=== PATIENT | female | born 1940 | race Caucasian/White ===

== ENCOUNTER 2017-05-10 08:04 | Day surgery (SDC) | payer MEDICARE, BC ==
[~2017-05-10 08:04] MED LIST: Lactated Ringers 1,000 ML IV SCH; Lidocaine 0.5% 50 ML SDV ONE; Midazolam 1 MG/ML 2 ML SDV ONE; Propofol 200 MG/20 ML SDV ONE; Sodium Chloride 0.9% 5 ML Syringe FLUSH PRN; ceFAZolin 1 GM Vial ONE; fentaNYL 100 MCG/2 ML SDV ONE
[2017-05-10] MEDS ORDERED: Bupivacaine 0.5% 30 ML SDV ONE (09:45)
[2017-05-10] MEDS ORDERED: Lactated Ringers 1,000 ML ONE (09:58)
[2017-05-10] MEDS ORDERED: Ondansetron 4 MG/2 ML SDV IV ONE (10:13)
[2017-05-10] MEDS ORDERED: fentaNYL 100 MCG/2 ML SDV IV ONE (10:13)
[2017-05-10] MEDS ORDERED: Propofol 200 MG/20 ML SDV IV ONE (10:13)
[2017-05-10] MEDS ORDERED: ceFAZolin 1 GM Vial IV ONE (10:13)
[2017-05-10] MEDS ORDERED: Midazolam 1 MG/ML 2 ML SDV IV ONE (10:13)
[2017-05-10] MEDS ORDERED: fentaNYL 100 MCG/2 ML SDV ONE (10:33)
[2017-05-10] MEDS ORDERED: Bupivacaine 0.5% 10 ML SDV INFILT ONE ×2 (10:46)
--- NOTE | 2017-05-10 12:03 | PCM.OPNOTE ---
- General Post-Op/Procedure Note Date of Surgery/Procedure: 05/10/17 Operative Procedure(s): Left cubital tunnel and carpal tunnel decompression. Findings: Atrophy of the ulnar nerve was noted. Also mild atrophy of the median nerve. Pre Op Diagnosis: Left cubital tunnel and carpal tunnel syndromes. Post-Op Diagnosis: Left cubital tunnel and carpal tunnel syndromes. Anesthesia Technique: General ET Tube, Moderate Sedation Primary Surgeon: John Carlin Complications: None Condition: Good Free Text/Narrative:: Preoperative diagnosis: Left cubital tunnel and carpal tunnel syndromes. Postoperative diagnosis: As above. Procedure performed: Left cubital tunnel and carpal tunnels release Informed consent was obtained from the patient regarding this procedure. All possible complications were thoroughly discussed. These include nerve injury vascular injury persistent numbness reoperation, failure of the operation to relieve the symptoms and other unknown complications. The patient previously had a similar procedure on the right side. As such is aware of the operative procedure. The patient was taken to the operating room and kept in the supine position. The dyer assistant administered a Luis Eduardo block anesthetic after exsanguination of the left upper extremity. However, there was marked cyanosis of the left upper extremity and the radial pulse could still be palpated. As such it was felt that we would not proceed with this type of anesthesia. A general anesthetic was then administered by the dyer assistant. The left upper extremity was thoroughly prepped and draped in the usual fashion. A tourniquet was placed and left upper arm to be used in case it was necessary. An incision was made in the left elbow 4 cm proximal and 47 m distal to the medial epicondyle. Dissection was performed in the serpiginous plane until the came down upon the area of the ulnar nerve. Carefully the removed the tissue off the cubital tunnel. The ulnar nerve was then carefully dissected proximally and distally. It was felt to be somewhat atrophic. Ever proximal pole adhesions as well as distal limitations. Proximally I dissected up to the intermuscular septum and distally up the common flexor origin. I then created a fascial sheath from the flexor origin. I placed the ulnar nerve anterior to the medial epicondyles and attached the small piece of common flexor sheath to the serpiginous tissue so as not to allow the ulnar nerve to drop down into the cubital tunnel. The arm was taken to flexion-extension several times. There was not felt to be any tension on the nerve. The wound was thoroughly irrigated. Small bleeders were cauterized. The subcutaneous tissues were approximated with 3-0 Polysorb. A 16 cm 1/4 inch drain was left in the wound and brought out to the distal edge of the skin incision which was closed using stainless steel clips. A sterile pressure dressings applied. Preoperative diagnosis: Left carpal tunnel syndrome. Postoperative diagnosis: As above. INFORMED CONSENT: Patient is here today for elective left carpal tunnel decompression. All aspects of this procedure have been discussed with the patient. All possible complications also, including possibility of perforation , infection, pain, bleeding and unknown complications. Anesthetic complications were handled by anesthesia department. The patient understands fully well. Patient did not have any further questions for me at the end of my interview. The patient wishes for me to proceed. PROCEDURE: A skin incision was made in the palm distal to the distal wrist crease for approximately 1 inch. The skin incision was deepened through the subcutaneous tissue, the palmar aponeurosis was incised and then we came down upon the transverse carpal ligament, which was opened along the line of the skin incision. Extreme care was taken to protect the median nerve below. Careful neurolysis was performed meticulously. Approximately 2 cc of Marcaine 0.5% was instilled into the wound and skin was closed using mattress sutures with 3.0 Nylon. The tourniquet was released. A sterile pressure dressing was applied. The patient tolerated the procedure well and was transferred to the recovery room in excellent condition. A posterior splint was placed to the left elbow. The patient was then transferred to the recovery room in an excellent condition. Blood loss was approximately 5-10 mL. Intraoperative complications were nil. Sponge needle and instrument count were correct.
[2017-05-10 14:05] VITALS: BP 159/78
== END 2017-05-10 14:10 | disposition home or self-care (01) ==
LOC: KA.SDS 08:04
PROVIDERS: ATTEND Family Medicine
DX: G56.02 Carpal tunnel syndrome, left upper limb (principal); G56.22 Lesion of ulnar nerve, left upper limb; I10 Essential (primary) hypertension; E87.6 Hypokalemia; E78.00 Pure hypercholesterolemia, unspecified; E03.9 Hypothyroidism, unspecified; Z88.1 Allergy status to other antibiotic agents; Z79.82 Long term (current) use of aspirin; Z79.899 Other long term (current) drug therapy
CPT/HCPCS: 01710; 01810; 64718; 64721; J0690; J2250; J2405; J2704; J3010; J7120

== ENCOUNTER 2018-11-14 11:52 | Inpatient (IN) | payer MEDICARE, BC ==
[2018-11-14] MEDS ORDERED: Enoxaparin 100 MG/1 ML Syringe SUBCUT SCH (14:00)
[2018-11-14] MEDS ORDERED: Atropine 0.1 MG/ML 10 ML Syringe IVPUSH PRN (14:45)
[2018-11-14] MEDS ORDERED: Lidocaine 2% 100 MG/5 ML Syringe IVPUSH PRN (14:45)
[2018-11-14] MEDS ORDERED: EPINEPHrine 1:10,000 1 MG/10 ML Syringe IVPUSH PRN (14:45)
[2018-11-14] MEDS ORDERED: Nitroglycerin 0.4 MG Tab.SL SL PRN (14:45)
--- NOTE | 2018-11-14 16:01 | CR ---
[id number] RAD/RAD Chest PA And Lateral EXAM: RAD Chest PA And Lateral INDICATION: A-FIB, NEW ONSET. COMPARISON: None. DISCUSSION: Cardiomediastinal silhouette is borderline enlarged. Atherosclerotic calcifications of the aortic knob. Right lower lobe pulmonary infiltrate. Left basilar subsegmental atelectasis. No pneumothorax or pleural effusion. IMPRESSION: Right lower lobe pulmonary infiltrate. Follow-up imaging after appropriate therapy in 4-6 weeks is recommended. Gustabo Ferreira DO 11/14/18 1600 Thank you for allowing us to participate in the care of your patient.
[2018-11-14] MEDS ORDERED: Acetaminophen 500 MG Tab PO PRN (16:47)
[2018-11-14] MEDS ORDERED: Warfarin 5 MG Tab PO SCH (17:00)
[2018-11-14] MEDS: Warfarin 5 MG Tab PO SCH (17:15)
[2018-11-14] MEDS ORDERED: Sodium Chloride 0.9% 10 ML Syringe FLUSH PRN (18:33)
[2018-11-14] MEDS ORDERED: atorvaSTATin 10 MG Tab PO SCH (21:00)
[2018-11-14] MEDS: Lisinopril 10 MG Tab PO SCH (21:16)
[2018-11-14] MEDS: Metoprolol Tartrate 50 MG Tab PO SCH (21:17)
[2018-11-15] MEDS: Levothyroxine 50 MCG Tab PO SCH (07:46)
[2018-11-15 07:54] LABS: ANION GAP 14.4 mmol/L (5-15)
[2018-11-15] MEDS: Potassium Chloride 20 MEQ Tab.ER PO SCH (08:39)
[2018-11-15] MEDS: atorvaSTATin 10 MG Tab PO SCH (08:40)
[2018-11-15] MEDS: Lisinopril 20 MG Tab PO SCH (08:40)
[2018-11-15] MEDS: Metoprolol Tartrate 50 MG Tab PO SCH ×2 (08:41→21:36)
[2018-11-15] MEDS: Furosemide 40 MG Tab PO SCH (08:41)
--- NOTE | 2018-11-15 14:27 | PCM.PN ---
- General Info Date of Service: 11/15/18 Functional Status: Reports: Pain Controlled, Tolerating Diet, New Symptoms ( Nurses reporting intermittent tachycardia however less than 110). Denies: Ambulating - Review of Systems General: Reports: No Symptoms HEENT: Reports: No Symptoms Pulmonary: Reports: No Symptoms Cardiovascular: Reports: Palpitations Gastrointestinal: Reports: No Symptoms Genitourinary: Reports: No Symptoms Musculoskeletal: Reports: No Symptoms Skin: Reports: No Symptoms Neurological: Reports: No Symptoms Psychiatric: Reports: No Symptoms - Patient Data Vitals - Most Recent: Last Vital Signs Temp 97.0 F 11/15/18 11:00 Pulse 70 11/15/18 11:00 Resp 20 11/15/18 11:00 BP 131/82 11/15/18 11:00 Pulse Ox 92 L 11/15/18 11:00 Weight - Most Recent: 192 lb 9.6 oz I&O - Last 24 Hours: Intake & Output 11/14/18 11/15/18 11/15/18 22:59 06:59 14:59 Intake Total 160 150 Balance 160 150 Lab Results Last 24 Hours: Laboratory Results - last 24 hr 11/14/18 11/14/18 11/15/18 Range/Units 15:00 15:00 07:15 PT 10.3 (8.9-11.4) SEC INR 1.0 (0.9-1.1) Sodium 143 (136-145) mmol/L Potassium 4.1 (3.3-5.3) mmol/L Chloride 108 (98-115) mmol/L Carbon Dioxide 24.7 (21.0-32.0) mmol/L Anion Gap 14.4 (5-15) mmol/L BUN 19 (6-25) mg/dL Creatinine 0.95 (0.51-1.17) mg/dL Est Cr Clr Drug Dosing 37.98 mL/min Estimated GFR (MDRD) 57 mL/min Glucose 93 (75 - 99) mg/dL Calcium 8.8 (8.7-10.3) mg/dL Troponin I 0.07 (0.00-0.070) ng/mL 11/15/18 Range/Units 07:15 PT 10.7 (8.9-11.4) SEC INR 1.1 (0.9-1.1) Sodium (136-145) mmol/L Potassium (3.3-5.3) mmol/L Chloride (98-115) mmol/L Carbon Dioxide (21.0-32.0) mmol/L Anion Gap (5-15) mmol/L BUN (6-25) mg/dL Creatinine (0.51-1.17) mg/dL Est Cr Clr Drug Dosing mL/min Estimated GFR (MDRD) mL/min Glucose (75 - 99) mg/dL Calcium (8.7-10.3) mg/dL Troponin I (0.00-0.070) ng/mL Med Orders - Current: Current Medications Acetaminophen (Tylenol Extra Strength) 500 - 1,000 mg PO Q4H PRN PRN Reason: Pain Atorvastatin Calcium (Lipitor) 10 mg PO DAILY [facility] Last Admin: 11/15/18 08:40 Dose: 10 mg Atropine Sulfate (Atropine 0.1 Mg/Ml) 0 mg IVPUSH ASDIRECTED PRN PRN Reason: Heart Epinephrine HCl (Epinephrine 1:10,000) 1 mg IVPUSH ASDIRECTED PRN PRN Reason: Heart Furosemide (Lasix) 20 mg PO DAILY [facility] Last Admin: 11/15/18 08:41 Dose: 20 mg Levothyroxine Sodium (Synthroid) 50 mcg PO ACBREAKFAST [facility] Last Admin: 11/15/18 07:46 Dose: 50 mcg Lidocaine HCl (Xylocaine 2%) 0 mg IVPUSH ASDIRECTED PRN PRN Reason: Heart Lisinopril (Prinivil) 10 mg PO QPM [facility] Last Admin: 11/14/18 21:16 Dose: 10 mg Lisinopril (Prinivil) 20 mg PO QAM [facility] Last Admin: 11/15/18 08:40 Dose: 20 mg Metoprolol Tartrate (Lopressor) 100 mg PO DAILY [facility] Last Admin: 11/15/18 08:41 Dose: 100 mg Metoprolol Tartrate (Lopressor) 50 mg PO QPM [facility] Last Admin: 11/14/18 21:17 Dose: 50 mg Nitroglycerin (Nitrostat) 0.4 mg SL ASDIRECTED PRN PRN Reason: Heart Potassium Chloride (Klor-Con M20) 20 meq PO DAILY [facility] Last Admin: 11/15/18 08:39 Dose: 20 meq Sodium Chloride (Saline Flush) 10 ml FLUSH Q8HR PRN PRN Reason: keep vein open Warfarin Sodium (Coumadin) 5 mg PO DAILY@1800 [facility] Last Admin: 11/14/18 17:15 Dose: 5 mg Warfarin Sodium (Pharmacy To Dose - Warfarin) 1 dose PO ASDIRECTED [facility] Discontinued Medications Atorvastatin Calcium (Lipitor) 10 mg PO BEDTIME [facility] Last Admin: 11/14/18 21:20 Dose: Not Given Enoxaparin Sodium (Lovenox) 90 mg SUBCUT Q12H [facility] Last Admin: 11/14/18 17:06 Dose: Not Given Warfarin Sodium (Coumadin) 5 mg PO DAILY [facility] Last Admin: 11/14/18 18:36 Dose: Not Given - Exam Quality Assessment: No: Supplemental Oxygen General: Alert, Oriented Neck: Supple Lungs: Clear to Auscultation, Normal Respiratory Effort Cardiovascular: Irregular Rhythm. No: Tachycardia GI/Abdominal Exam: Soft (Female) Exam: Deferred Back Exam: No: CVA Tenderness (L) Extremities: No: Pedal Edema Psy/Mental Status: Alert, Normal Affect, Normal Mood - Problem List Review Problem List Initiated/Reviewed/Updated: Yes - My Orders Last 24 Hours: My Active Orders 11/14/18 14:45 Atropine [Atropine 0.1 MG/ML] 0 mg IVPUSH ASDIRECTED PRN EPINEPHrine [EPINEPHrine 1:10,000] 1 mg IVPUSH ASDIRECTED PRN Lidocaine 2% [Xylocaine 2%] 0 mg IVPUSH ASDIRECTED PRN Nitroglycerin [Nitrostat] 0.4 mg SL ASDIRECTED PRN 11/14/18 15:00 Warfarin Pharmacy to Dose [Pharmacy to Dose - Warfarin] 1 dose PO ASDIRECTED 11/14/18 16:00 Peripheral IV Insertion Adult [OM.PC] Routine 11/14/18 16:47 Acetaminophen [Tylenol Extra Strength] 500 - 1,000 mg PO Q4H PRN 11/14/18 18:00 Warfarin [Coumadin] 5 mg PO DAILY@1800 11/14/18 18:33 Peripheral IV Care [RC] . DIRECTED Sodium Chloride 0.9% [Saline Flush] 10 ml FLUSH Q8HR PRN 11/14/18 21:00 Lisinopril [Prinivil] 10 mg PO QPM Metoprolol Tartrate [Lopressor] 50 mg PO QPM 11/15/18 07:30 Levothyroxine [Synthroid] 50 mcg PO ACBREAKFAST 11/15/18 09:00 Furosemide [Lasix] 20 mg PO DAILY Lisinopril [Prinivil] 20 mg PO QAM Metoprolol Tartrate [Lopressor] 100 mg PO DAILY Potassium Chloride [Klor-Con M20] 20 meq PO DAILY atorvaSTATin [Lipitor] 10 mg PO DAILY 11/15/18 Lunch Heart Healthy Diet [DIET] 11/16/18 12:36 INR,PT,PROTHROMBIN TIME [COAG] DAILY 11/17/18 12:36 INR,PT,PROTHROMBIN TIME [COAG] DAILY 11/18/18 12:36 INR,PT,PROTHROMBIN TIME [COAG] DAILY 11/19/18 12:36 INR,PT,PROTHROMBIN TIME [COAG] DAILY 11/20/18 12:36 INR,PT,PROTHROMBIN TIME [COAG] DAILY 11/21/18 12:36 INR,PT,PROTHROMBIN TIME [COAG] DAILY 11/22/18 12:36 INR,PT,PROTHROMBIN TIME [COAG] DAILY - Plan Plan:: 78 year old female came into the [facility] to see me mainly for her chronic medical conditions and medication review and refill however she had irregular heart rate with new detected onset of atrial fibrillation. She states she has noticed palpitations for the past month or 2 and she has taken her pulse and she admits to irregular heart rate however she has never communicated this to anybody. Primary hospital problems Atrial fibrillation, CVR, [id number] Score 5, 5 mg Coumadin, DOAC cost prohibitive for her, INR goal 2-3, current rate control with hypertension medication metoprolol. HFpEF, diastolic, Echo in November 2017 EF 65%. Grade 1 left ventricular diastolic dysfunction. Normal systolic function. Lasix 20mg daily and potassium 20mEq daily. Likely NYHA class II based off sx. On ACEI inhibition. Could target to 30mg dialy. Chronic problems Hypertension taking metoprolol and lisinopril. Does not check BP at home. Stable, Hypothyroidism, Last TSH 11/07/18 3.14 levothyroxine 50mcg daily. HLD, hyperlipidemia, taking atorvastatin 10mg daily; feels diet is balanced. H/O ovarian cancer. Last CA 125 level was May, 2018; Osteopenia: Last DEXA Jun 2015--osteopenia; on alendronate Overall plan, continue inpatient stay with ongoing educational videos regarding atrial fibrillation. Coumadin 5 mg by mouth daily, likely will be discharged in the morning. Coumadin clinic referral was placed in outpatient clinic
[2018-11-15] MEDS: Warfarin 5 MG Tab PO SCH (18:03)
[2018-11-15] MEDS: Lisinopril 10 MG Tab PO SCH (21:35)
[2018-11-16] MEDS: Levothyroxine 50 MCG Tab PO SCH (06:52)
[2018-11-16] MEDS: atorvaSTATin 10 MG Tab PO SCH (09:58)
[2018-11-16] MEDS: Potassium Chloride 20 MEQ Tab.ER PO SCH (09:59)
[2018-11-16] MEDS: Metoprolol Tartrate 50 MG Tab PO SCH (09:59)
[2018-11-16] MEDS: Lisinopril 20 MG Tab PO SCH (09:59)
[2018-11-16] MEDS: Furosemide 40 MG Tab PO SCH (10:00)
[2018-11-16 11:52] VITALS: BP 131/97
--- NOTE | 2018-11-16 13:41 | PCM.DCSUM1 ---
Discharge Summary - Hospital Course Diagnosis: Stroke: No - Discharge Data Discharge Date: 11/16/18 Discharge Disposition: Home, Self-Care 01 Condition: Good - Patient Instructions Diet: Heart Healthy Diet Activity: As Tolerated Showering/Bathing: May Shower Other/Special Instructions: --Report any on bruising, bloody urine or any signs of bleeding or dark stools. --Come to [facility] Monday and Monday to check your blood level. --You will be called by a pharmacist to inform you how much Coumadin to take. --Keep taking 5 mg of Coumadin each day this weekend until further instructions. - Discharge Plan *PRESCRIPTION DRUG MONITORING PROGRAM REVIEWED*: Not Applicable *COPY OF PRESCRIPTION DRUG MONITORING REPORT IN PATIENT STAN: Not Applicable Prescriptions/Med Rec: atorvaSTATin [Lipitor] 10 mg PO DAILY #90 tablet Furosemide [Lasix] 20 mg PO DAILY #90 tablet Levothyroxine Sodium [Levo-T] 50 mcg PO DAILY #90 tablet Potassium Chloride [Klor-Con M20] 20 meq PO DAILY #90 tab.er Warfarin [Coumadin] 2 mg PO DAILY #60 tab Home Medications: Home Meds Acetaminophen [Acetaminophen Extra Strength] 500 - 1,000 mg PO Q4H PRN 03/29/16 [History] Alendronate [Fosamax] 70 mg PO Q7D@0600 03/29/16 [History] Furosemide [Lasix] 20 mg PO DAILY 03/29/16 [History] Levothyroxine [Synthroid] 50 mcg PO ACBREAKFAST 03/29/16 [History] Lisinopril 20 mg PO QAM 03/29/16 [History] Metoprolol Tartrate [Lopressor] 100 mg PO DAILY 03/29/16 [History] Potassium Chloride [Klor-Con M20] 20 meq PO DAILY 03/29/16 [History] atorvaSTATin [Lipitor] 10 mg PO BEDTIME 03/29/16 [History] Lisinopril 10 mg PO QPM 11/14/18 [History] Metoprolol Tartrate 50 mg PO QPM 11/14/18 [History] Warfarin [Coumadin] 5 mg PO DAILY 11/14/18 [History] Furosemide [Lasix] 20 mg PO DAILY #90 tablet 11/16/18 [Rx] Levothyroxine Sodium [Levo-T] 50 mcg PO DAILY #90 tablet 11/16/18 [Rx] Potassium Chloride [Klor-Con M20] 20 meq PO DAILY #90 tab.er 11/16/18 [Rx] Warfarin [Coumadin] 2 mg PO DAILY #60 tab 11/16/18 [Rx] atorvaSTATin [Lipitor] 10 mg PO DAILY #90 tablet 11/16/18 [Rx] Referrals: Dane Wilson, [employer] APPRENTICE [Nurse Practitioner] - (Early next week) - Discharge Summary/Plan Comment DC Time >30 min.: Yes Discharge Summary/Plan Comment: Final diagnosis Atrial fibrillation, new onset CVR HFpEF, chronic diastolic Chronic problems Hypertension taking metoprolol and lisinopril. Does not check BP at home. Stable, Hypothyroidism, Last TSH 11/07/18 3.14 levothyroxine 50mcg daily. HLD, hyperlipidemia, taking atorvastatin 10mg daily; feels diet is balanced. H/O ovarian cancer. Last CA 125 level was May, 2018; Osteopenia: Last DEXA Jun 2015--osteopenia; on alendronate History summary I had seen patient at [facility] for routine medical appointment however noticed her heart rate was quite irregular EKG demonstrated atrial fibrillation. She was admitted mainly on telemetry for medication management, anticoagulation education. She patient states that over the past 2 months she has noticed irregular pulse however denies chest pain diaphoresis or dizziness. She does have heart failure likely class II. For her hypertension she's been on metoprolol and lisinopril. , Echo in November 2017 EF 65%. Grade 1 left ventricular diastolic dysfunction. Normal systolic function. Lasix 20mg daily and potassium 20mEq daily. Likely NYHA class II based off sx. On ACEI inhibition. Hospital course Hospital course went well no side effects or adverse reactions to medications and/or treatments. She remained on telemetry with a resting heart rate 70s 80s however twice she had tachycardia up to 115 on ambulation. No palpitations blood pressure remained good. No hemodynamic instability. She was given Coumadin 5 mg tablet daily. Her INR on discharge was subtherapeutic at 1.3 however increasing. She received both verbal and written and review education regarding atrial fibrillation. Medication changes/adjustments upon discharge Discontinue ibuprofen and aspirin Coumadin 5 mg by mouth daily Disposition Discharge from the hospital, I will follow her up next week, and INR checks [facility] Monday and Monday. She will take 5 mg daily on Monday and Monday and INR clinic will contact her. Referral placed, and phone call placed by nurses at [facility] - General Info Functional Status: Reports: Pain Controlled - Review of Systems General: Reports: No Symptoms HEENT: Reports: No Symptoms Pulmonary: Reports: No Symptoms Cardiovascular: Reports: No Symptoms. Denies: Palpitations, Lightheadedness Gastrointestinal: Reports: No Symptoms Genitourinary: Reports: No Symptoms Musculoskeletal: Reports: No Symptoms Neurological: Reports: No Symptoms Psychiatric: Reports: No Symptoms - Patient Data Vitals - Most Recent: Last Vital Signs Temp 97.5 F 11/16/18 11:00 Pulse 66 11/16/18 11:00 Resp 20 11/16/18 11:00 BP 131/97 H 11/16/18 11:00 Pulse Ox 93 L 11/16/18 11:00 Weight - Most Recent: 192 lb 9.6 oz I&O - Last 24 hours: Intake & Output 11/15/18 11/16/18 11/16/18 22:59 06:59 14:59 Intake Total 740 200 Output Total 200 Balance 540 200 Lab Results - Last 24 hrs: Laboratory Results - last 24 hr 11/16/18 Range/Units 08:20 PT TNP INR 1.3 H (0.9-1.1) Med Orders - Current: Current Medications Acetaminophen (Tylenol Extra Strength) 500 - 1,000 mg PO Q4H PRN PRN Reason: Pain Last Admin: 11/16/18 06:52 Dose: 500 mg Atorvastatin Calcium (Lipitor) 10 mg PO DAILY [facility] Last Admin: 11/16/18 09:58 Dose: 10 mg Atropine Sulfate (Atropine 0.1 Mg/Ml) 0 mg IVPUSH ASDIRECTED PRN PRN Reason: Heart Epinephrine HCl (Epinephrine 1:10,000) 1 mg IVPUSH ASDIRECTED PRN PRN Reason: Heart Furosemide (Lasix) 20 mg PO DAILY [facility] Last Admin: 11/16/18 10:00 Dose: 20 mg Levothyroxine Sodium (Synthroid) 50 mcg PO ACBREAKFAST [facility] Last Admin: 11/16/18 06:52 Dose: 50 mcg Lidocaine HCl (Xylocaine 2%) 0 mg IVPUSH ASDIRECTED PRN PRN Reason: Heart Lisinopril (Prinivil) 10 mg PO QPM [facility] Last Admin: 11/15/18 21:35 Dose: 10 mg Lisinopril (Prinivil) 20 mg PO QAM [facility] Last Admin: 11/16/18 09:59 Dose: 20 mg Metoprolol Tartrate (Lopressor) 100 mg PO DAILY [facility] Last Admin: 11/16/18 09:59 Dose: 100 mg Metoprolol Tartrate (Lopressor) 50 mg PO QPM [facility] Last Admin: 11/15/18 21:36 Dose: 50 mg Nitroglycerin (Nitrostat) 0.4 mg SL ASDIRECTED PRN PRN Reason: Heart Potassium Chloride (Klor-Con M20) 20 meq PO DAILY [facility] Last Admin: 11/16/18 09:59 Dose: 20 meq Sodium Chloride (Saline Flush) 10 ml FLUSH Q8HR PRN PRN Reason: keep vein open Warfarin Sodium (Coumadin) 5 mg PO DAILY@1800 [facility] Last Admin: 11/15/18 18:03 Dose: 5 mg Warfarin Sodium (Pharmacy To Dose - Warfarin) 1 dose PO ASDIRECTED [facility] Discontinued Medications Atorvastatin Calcium (Lipitor) 10 mg PO BEDTIME [facility] Last Admin: 11/14/18 21:20 Dose: Not Given Enoxaparin Sodium (Lovenox) 90 mg SUBCUT Q12H [facility] Last Admin: 11/14/18 17:06 Dose: Not Given Warfarin Sodium (Coumadin) 5 mg PO DAILY [facility] Last Admin: 11/14/18 18:36 Dose: Not Given - Exam Quality Assessment: Denies: Supplemental Oxygen General: Reports: Alert, Oriented Neck: Reports: Supple Lungs: Reports: Clear to Auscultation, Normal Respiratory Effort Cardiovascular: Reports: Irregular Rhythm (Female) Exam: Deferred Extremities: Pedal Edema Psy/Mental Status: Reports: Alert, Normal Affect, Normal Mood
== END 2018-11-16 14:10 | disposition home or self-care (01) | DRG 308 ==
LOC: KA.MS 14:44
PROVIDERS: ADMIT Nurse Practitioner Family; ATTEND Family Medicine
DX: I48.91 Unspecified atrial fibrillation (principal); I50.33 Acute on chronic diastolic (congestive) heart failure; I11.0 Hypertensive heart disease with heart failure; E03.9 Hypothyroidism, unspecified; E78.5 Hyperlipidemia, unspecified; M10.9 Gout, unspecified; M85.80 Other specified disorders of bone density and structure, unspecified site; Z79.899 Other long term (current) drug therapy; Z88.1 Allergy status to other antibiotic agents; Z85.43 Personal history of malignant neoplasm of ovary; Z79.01 Long term (current) use of anticoagulants
CPT/HCPCS: 36415; 36416; 71046; 80048; 84484; 85610; 93005; A9270-GY

== ENCOUNTER 2019-12-22 01:43 | Emergency (ER) | payer MEDICARE, BC ==
--- NOTE | 2019-12-22 02:28 | EDM.PDOC ---
ED HPI GENERAL MEDICAL PROBLEM - General Chief Complaint: General Stated Complaint: Nose Bleed Time Seen by Provider: 12/22/19 02:02 Source of Information: Reports: Patient History Limitations: Reports: No Limitations - History of Present Illness INITIAL COMMENTS - FREE TEXT/NARRATIVE: Patient presents with nosebleed that started a little over an hour ago. She is on warfarin (for A FIb) and last INR was 2.7 two weeks ago. She didn't take the warfarin today. She has been applying direct pressure but the bleeding won' t stop. She says she hasn't ever had this bad a nosebleed before. - Related Data Allergies Allergy/AdvReac Type Severity Reaction Status Date / Time ampicillin Allergy Hives Verified 11/14/18 12:40 Home Meds: Home Meds Acetaminophen [Acetaminophen Extra Strength] 500 - 1,000 mg PO Q4H PRN 03/29/16 [History] Alendronate [Fosamax] 70 mg PO Q7D@0600 03/29/16 [History] Levothyroxine [Synthroid] 50 mcg PO ACBREAKFAST 03/29/16 [History] Lisinopril 10 mg PO QPM 11/14/18 [History] atorvaSTATin [Lipitor] 10 mg PO DAILY #90 tablet 11/16/18 [Rx] Furosemide [Lasix] 30 mg PO DAILY 12/22/19 [History] Metoprolol Succinate 200 mg PO DAILY 12/22/19 [History] Spironolactone [Aldactone] 25 mg PO DAILY 12/22/19 [History] Warfarin [Coumadin] 2 mg PO 12/22/19 [History] Warfarin [Coumadin] 4 mg PO 12/22/19 [History] Past Medical History HEENT History: Reports: Impaired Vision Cardiovascular History: Reports: High Cholesterol, Hypertension Respiratory History: Reports: None Gastrointestinal History: Reports: None Genitourinary History: Reports: None BRICK CARRIER History: Reports: None Musculoskeletal History: Reports: Gout, Other (See Below) Other Musculoskeletal History: carpal tunnel Neurological History: Reports: Migraines Endocrine/Metabolic History: Reports: None Hematologic History: Reports: Blood Transfusion(s) Oncologic (Cancer) History: 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, Squamous Cell Carcinoma Dermatologic History: Reports: Melanoma - Infectious Disease History Infectious Disease History: Reports: Chicken Pox, Measles, Mumps, Rubella - Past Surgical History HEENT Surgical History: Reports: None Cardiovascular Surgical History: Reports: None Respiratory Surgical History: Reports: None GI Surgical History: Reports: Colonoscopy, Hernia, Abdominal Neurological Surgical History: Reports: None Musculoskeletal Surgical History: Reports: Joint Replacement, Knee Replacement, Other (See Below) Other Musculoskeletal Surgeries/Procedures:: Right carpal tunnel release Social & Family History - Family History Cardiac: Reports: Hypertension Neurological: Reports: CVA - Caffeine Use Caffeine Use: Reports: Soda, Tea ED ROS GENERAL - Review of Systems Review Of Systems: See Below Constitutional: Denies: Fever, Weakness HEENT: Reports: Nosebleed. Denies: Throat Pain, Vision Change Respiratory: Reports: Cough. Denies: Shortness of Breath Cardiovascular: Denies: Chest Pain, Lightheadedness, Syncope GI/Abdominal: Denies: Abdominal Pain, Diarrhea, Vomiting : Denies: Dysuria Musculoskeletal: Reports: No Symptoms Skin: Denies: Cyanosis, Jaundice, Mottled, Pallor, Diaphoresis Neurological: Denies: Confusion, Dizziness, Headache Psychiatric: Denies: Agitation, Anxiety, Confusion Hematologic/Lymphatic: Reports: Easy Bleeding ED EXAM, GENERAL - Physical Exam Exam: See Below Exam Limited By: No Limitations General Appearance: Alert, WD/WN, No Apparent Distress Eye Exam: Bilateral Eye: EOMI, Normal Inspection, PERRL Ears: Normal External Exam, Hearing Grossly Normal Nose: Other (brisk bleeding from left nostril and slight oozing from right.) Throat/Mouth: Normal Inspection, Normal Lips, Normal Voice, No Airway Compromise Head: Atraumatic, Normocephalic Neck: Normal Inspection, Full Range of Motion Respiratory/Chest: No Respiratory Distress, Lungs Clear, Normal Breath Sounds, No Accessory Muscle Use Cardiovascular: Regular Rate, Rhythm, No Murmur Back Exam: Normal Inspection, Full Range of Motion, CVA Tenderness (L). No: CVA Tenderness (R) Extremities: Normal Inspection, Normal Range of Motion Neurological: Alert, Oriented, Normal Cognition, No Motor/Sensory Deficits Psychiatric: Normal Affect, Normal Mood Skin Exam: Warm, Dry, Intact, Normal Color, No Rash ED EPISTAXIS PROCEDURES - Epistaxis Procedure Indication: Epistaxis, Uncontrolled Recent anticoagulants/antiplatlets: Yes Uncontrolled HTN: No Recent septal/nasal surgery: No Site of bleeding: Left Nare Clearing of clots: Patient Blew Nose Ice pack to area: Yes Anterior Packing: Inflatable Nasal Tampon Posterior packing: Long Inflatable Nasal Tampon Complications: No Course - Vital Signs Last Recorded V/S: Last Vital Signs Temp 97.1 F 12/22/19 02:06 Pulse 82 12/22/19 04:10 Resp 22 H 12/22/19 04:10 BP 113/68 12/22/19 04:10 Pulse Ox 94 L 12/22/19 04:10 - Orders/Labs/Meds Labs: Laboratory Tests 12/22/19 Range/Units 02:00 PT 37.7 H D (8.9-11.4) SEC INR 3.9 H (0.9-1.1) Meds: Medications Discontinued Medications Generic Name Dose Route Start Last Admin Trade Name Latesha PRN Reason Stop Dose Admin Phytonadione 20 mg/ Sodium 52 mls @ 100 mls/hr 12/22/19 03:18 12/22/19 04:02 Chloride IV 12/22/19 03:48 Not Given NOW ONE Phytonadione 2.5 mg/ Sodium 50.25 mls @ 100 mls/hr 12/22/19 03:51 12/22/19 03 :53 Chloride IV 12/22/19 04:21 100 mls/hr NOW ONE Administration Phytonadione Confirm 12/22/19 03:17 12/22/19 04:02 Aquamephyton Administered 12/22/19 03:18 Not Given Dose 20 mg .ROUTE .STK-MED ONE - Re-Assessments/Exams Free Text/Narrative Re-Assessment/Exam: 12/22/19 03:20 After placing the Rapid Rhino bleeding slowed but took several minutes to stop. It did stop however and then we got the INR results showing 3.9, will give Vit K now. 12/22/19 03:52 We don't have the correct dose available for PO dosing so discussed with telepharmacy and will give 2.5 mg IV now. Patient is still having slight oozing from bilat nostrils. 12/22/19 04:32 Patient is doing well now with no more bleeding for last 20 minutes. We discussed findings and treatment plan including managing the nasal balloon with syringe. We also discussed the option of staying overnight in the hospital but she doesn't think she needs or wants to do that. Pt is discharged to home in stable condition. Departure - Departure Time of Disposition: 04:27 Disposition: Home, Self-Care 01 Condition: Good Clinical Impression: Epistaxis not due to trauma, On warfarin therapy - Discharge Information Instructions: Vitamin K Foods and Warfarin, Nosebleed, [id number] Forms: ED Department Discharge Additional Instructions: 1. Hold your warfarin until you see your doctor on Monday. 2. See your doctor on Monday to remove the nasal balloon and for recheck of your protime/INR. 3. If the balloon pressure in your nose becomes too uncomfortable you can use the syringe to let out a little air/pressure. If bleeding restarts you can use the syringe to inflate the balloon again as we did in ER. 4. Make sure you see a doctor within 48 hours to remove the nasal balloon. Sepsis Event Note - Evaluation Sepsis Screening Result: No Definite Risk - Focused Exam Vital Signs: Vital Signs Temp Pulse Resp BP Pulse Ox 12/22/19 04:10 82 22 H 113/68 94 L 12/22/19 02:06 97.1 F 80 23 H 103/75 93 L Date Exam was Performed: 12/22/19 Time Exam was Performed: 04:31
[2019-12-22 04:33] VITALS: BP 114/76; PULSE 86
== END 2019-12-22 04:53 | disposition home or self-care (01) ==
LOC: KA.ED 01:43
DX: R04.0 Epistaxis (principal); I48.91 Unspecified atrial fibrillation; I10 Essential (primary) hypertension; E78.00 Pure hypercholesterolemia, unspecified; Z88.1 Allergy status to other antibiotic agents; Z79.899 Other long term (current) drug therapy; Z79.01 Long term (current) use of anticoagulants
CPT/HCPCS: 30901; 30903; 36415; 85610; 96365; 99283; 99283-25; J3430; J7050